=== PATIENT | male | born 1960 | race Two or more races ===

== ENCOUNTER 2019-09-14 18:51 | Emergency (ER) | payer SELFPAY ==
[~2019-09-14] VITALS: Ht 170.2 cm; Wt 81.6 kg
--- NOTE | 2019-09-14 18:58 | NUR ---
ED Nurse Note: Pt brought in by ambulance for falling off a ladder 3 feet high. He has minor laceratio anterior head with no drainage. Pt has been drinking and does not want to stay in hospital and says he feels ready to go home.
[2019-09-14 19:00] VITALS: BP 163/91
--- NOTE | 2019-09-14 19:10 | Emergency Room Report ---
History of Present Illness General Chief Complaint: Multiple Trauma/Fall Source: Patient Present Illness HPI Disclaimer: Please note that this report is being documented using [employer] technology. This can lead to erroneous entry secondary to incorrect interpretation by the dictating instrument. HPI: 59-year-old male presents for evaluation after injury. Primarily Russian- speaking and history was obtained through the use of a parts interpreter. The patient states he fell off a ladder approximate 3 to 4 feet earlier this afternoon with a minor head injury. Denies loss of consciousness. He applied pressure and obtained hemostasis. He admits to drinking alcohol earlier in the day but states that he is not intoxicated. He was brought in for evaluation via EMS at the persistence of his family. The patient does not want any medical evaluation and is refusing any intervention at this time. He states he is fine and does not even want to see a doctor. PMH: Unable to obtain from patient PSH: Unable to obtain from patient Allergies: Unable to obtain from patient Social Hx: Alcohol use Allergies: Coded Allergies: No Known Allergies (Unverified , 09/14/19) COVID-19 Screening Contact w/high risk pt: No Recent Travel to affected area: No Experienced COVID-19 symptoms?: No COVID-19 Testing performed CARDIAC SURGEON: No Nursing Documentation-PMH Past Medical History: No Stated History Review of Systems All Other Systems: limited - Patient refusing to answer Physical Exam Vital Signs Date Time Temp Pulse Resp B/P (MAP) Pulse Ox O2 Delivery O2 Flow Rate FiO2 09/14/19 18:41 98.1 90 20 178/90 (119) 98 Room Air 09/14/19 19:00 98 General: Awake and alert, no acute distress HEENT: Normocephalic. He has 2 1 centimeter superficial lacerations just behind the hairline in the forehead and another 0.5 cm laceration over the right tenriism. All are hemostatic. Cardiovascular: RRR. S1 and S2 normal. No murmur appreciated Resp: Normal work of breathing. No cough, wheezing or crackles appreciated Abdomen: Abdomen is soft, nondistended. Nontender Skin: He has 2 1 centimeter superficial lacerations just behind the hairline in the forehead and another 0.5 cm laceration over the right tenriism. All are hemostatic. Neuro: Awake and alert. Mentating appropriately. Speech is slightly dysarthric. Gait is somewhat unsteady. Procedures Laceration/Wound Repair Laceration/Wound Repair : Consent: Verbal Wound Location: head Wound's Depth, Shape: superficial, linear Wound Explored: clean Wound Repaired With: cheo Number of Sutures: 6 Layer Closure?: No Patient Tolerated: Well Complications: None Medical Decision Making Diagnostic Impression: Primary Impression: Scalp laceration ER Course Is a 59-year-old male brought to the emergency department by EMS for evaluation of scalp lacerations. The patient had a fall approximately 3 feet on a ladder without a loss of consciousness. Patient is refusing any medical intervention initially but then was compliant with cheo. The 3 small wounds in his scalp were repaired with a total of 6 cheo. Tetanus was updated. The patient was metabolized in the emergency department and is now ambulating with a steady gait. His speech is no longer slurred and appears clinically sober. Patient is refusing any further medical interventions at this time including labs and imaging. He wishes to follow-up on an outpatient basis. I discussed reasons to return to the emergency department. He understands and agrees with this treatment plan. Last Vital Signs Date Time Temp Pulse Resp B/P (MAP) Pulse Ox O2 Delivery O2 Flow Rate FiO2 09/14/19 19:00 98.1 91 21 163/91 99 Room Air 09/14/19 19:00 98 Disposition: HOME, SELF-CARE Condition: Improved Scripts No Active Prescriptions or Reported Meds Referrals: NOT CHOSEN IPA/,REFERRING (PCP) Melo Price MD September 14, 2019 19:10
[2019-09-14] MEDS ORDERED: Tetanus/Diptheria/Pertussis IM ONE (19:30)
--- NOTE | 2019-09-14 19:50 | NUR ---
ED Nurse Note: EMD bedside for lac repair. Mesa placed and wound cleaned.
--- NOTE | 2019-09-14 20:00 | NUR ---
ED Nurse Note: Pt is ambulatory with steady gait. Pt is requesting to leave.
[2019-09-14 20:30] VITALS: BP 150/85
--- NOTE | 2019-09-14 20:30 | NUR ---
ER DISCHARGE NOTE: Patient is cleared to be discharged per ERMD, pt is aox4, on room air, with stable vital signs. pt was given dc and prescription instructions, pt was able to verbalize understanding, pt id band removed. pt is able to ambulate with steady gait. pt took all belongings.
== END 2019-09-14 20:30 | disposition home or self-care (01) ==
LOC: EDBD 18:51 → EMR 19:08
DX: S01.01XA Laceration without foreign body of scalp, initial encounter (principal); Z23 Encounter for immunization; W11.XXXA Fall on and from ladder, initial encounter; Y92.9 Unspecified place or not applicable
CPT/HCPCS: 90471; 90715; 99283